=== PATIENT | female | born 1980 | race African-American/Black ===

== ENCOUNTER 2019-07-12 14:15 | Emergency (ER) | payer MEDICAID ==
[~2019-07-12 14:15] MED LIST: IBUP-2030 PO
== END 2019-07-12 16:43 | disposition left against medical advice (07) ==
LOC: ER 14:15
DX: Z53.21 Procedure and treatment not carried out due to patient leaving prior to being seen by health care provider (principal)

== ENCOUNTER 2020-12-10 15:04 | Emergency (ER) | payer MEDICAID ==
[~2020-12-10] VITALS: Ht 172.7 cm; Wt 127.0 kg
[2020-12-10] MEDS ORDERED: HYDROCODONE/ACETAMINOPHEN 5/325MG TABLET PO STA ×2 (16:46→18:20)
[2020-12-10] MEDS ORDERED: KETOROLAC 60MG/2ML VIAL IM STA (16:46)
[2020-12-10 17:18] VITALS: BP 135/85
[2020-12-10] MEDS ORDERED: ONDANSETRON HCL 4MG/2ML INJ IM STA (18:20)
[2020-12-10] MEDS ORDERED: IBUP-2030 PO (18:54)
[2020-12-10] MEDS ORDERED: HYDR-4346 PO (18:54)
[2020-12-10] MEDS ORDERED: IBUP-2028 MT (19:16)
[2020-12-10] MEDS ORDERED: CYCL10TA7 MT (19:16)
== END 2020-12-10 19:32 | disposition home or self-care (01) ==
LOC: ER 15:04
DX: M54.5 Low back pain (principal); G89.29 Other chronic pain; M54.31 Sciatica, right side; Z87.440 Personal history of urinary (tract) infections
CPT/HCPCS: 72100; 96372; 99283; J1885; Z7610

== ENCOUNTER 2021-01-20 07:30 | Emergency (ER) | payer MEDICAID ==
[~2021-01-20] VITALS: Ht 172.7 cm; Wt 123.0 kg
[~2021-01-20 07:30] MED LIST changes: +CYCL10TA7 MT; +IBUP-2028 MT
[2021-01-20 07:31] VITALS: BP 148/79
[2021-01-20] MEDS ORDERED: CEFTRIAXONE SODIUM 500 MG/VIAL IM ONE (08:00)
[2021-01-20] MEDS ORDERED: DOXYCYCLINE HYCLATE 100MG CAPSULE PO ONE (08:00)
[2021-01-20 08:47] LABS: CLARITY URINE CLOUDY (CLEAR); COLOR URINE YELLOW (YELLOW); KETONES URINE NEGATIVE (NEGATIVE); LEUKOCYTE ESTERASE URINE 2+ (NEGATIVE); NITRITE URINE NEGATIVE (NEGATIVE); OCCULT BLOOD URINE 2+ (NEGATIVE); PH URINE 6.5 (4.5-8.0); PROTEIN URINE NEGATIVE (NEGATIVE); SPECIFIC GRAVITY URINE 1.012 (1.005-1.030); UROBILINOGEN URINE 0.2 E.U./dL (0.2-1.0)
[2021-01-20] MEDS ORDERED: SULF1TAB48 PO (09:45)
[2021-01-20] MEDS ORDERED: DOXY100T2 PO (09:45)
[2021-01-22 04:10] LABS: NEISSERIA GONORRHOEAE NAA Equivocal (Negative)
== END 2021-01-20 09:11 | disposition left against medical advice (07) ==
LOC: ER 07:30
DX: J02.9 Acute pharyngitis, unspecified (principal); N39.0 Urinary tract infection, site not specified; A64 Unspecified sexually transmitted disease
CPT/HCPCS: 81003; 81025; 87086; 87186; 87491; 87591; 96372; 99283; J0696

== ENCOUNTER 2021-01-20 09:37 | Emergency (ER) | payer MEDICAID ==
[~2021-01-20] VITALS: Ht 172.7 cm; Wt 124.0 kg
[2021-01-20 09:38] VITALS: BP 107/83
[2021-01-20] MEDS ORDERED: SULF1TAB48 PO (09:45)
[2021-01-20] MEDS ORDERED: DOXY100T2 PO (09:45)
== END 2021-01-20 10:00 | disposition home or self-care (01) ==
LOC: ER 09:37
DX: N39.0 Urinary tract infection, site not specified (principal); A64 Unspecified sexually transmitted disease; F31.9 Bipolar disorder, unspecified; Z87.440 Personal history of urinary (tract) infections; Z79.899 Other long term (current) drug therapy
CPT/HCPCS: 99281; 99283